=== PATIENT | male | born 1945 | race Caucasian/White ===

== ENCOUNTER 2024-10-14 12:52 | Day surgery (SDC) | payer MEDICARE, OTHER, SELFPAY ==
[2024-10-14] VITALS (12 sets, daily range): BP systolic 101–150; BP diastolic 53–77; BMI 26.5; BMI 25.8
--- NOTE | 2024-10-14 10:37 | ED.GENMED ---
History of Present Illness
General
Chief Complaint: Musculo-Skeletal Complaint
Time Seen by Provider: 10/14/24 10:28
History of Present Illness
History of Present Illness:
78-year-old male presents the emergency department for evaluation of left foot osteomyelitis. Has had a plantar foot ulcer managed by podiatry as an outpatient for several weeks, had an outpatient MRI earlier this week revealing osteomyelitis and
an foot fracture. Was sent in by his applications scientist Dr. Velasco for admission and operative intervention with request to hold antibiotics at this time. Denies fevers. Has been on clindamycin for 4 days but did not take this AM. On Eliquis, did take
AM dose at request of podiatry
MRI results reveal acute osteomyelitis of the fifth metatarsal head and overlying skin ulceration as well as a subacute chronic displaced fracture of the fourth metatarsal head
Review of Systems
Review of Systems
Allergies reviewed?: Yes
All Other Systems: ROS reviewed and negative except as documented in HPI and ROS
Phy Exam
Physical Exam
Physical Exam:
GEN: Well appearing, NAD, WDWN
HEENT: Oral mucosa moist, no scleral icterus
Cardiac: Regular rate
Lung: No respiratory distress, no tachypnea
MSK: No gross deformity or injuries. Partial thickness ulceration to lateral base of plantar 5th metatarsal region, no erythema or swelling, does not probe
Skin: Good color, no pallor or jaundice, no rashes
Neuro: AO x3, moves all extremities freely
Psych: Calm, cooperative
Course
Orders/Labs/Results
Orders:
Orders
10/14/24 Breakfast
NPO
Allow oral meds: Yes
Allow clear liquids: No
10/14/24 10:43
CRP [C-Reactive Protein] Urgent
Complete Blood Count/With Diff Urgent
Comprehensive Metabolic Panel Urgent
10/14/24 11:40
PODIATRY CONSULT Routine
Consulting Provider: Verderame,Claire M.
Was physician already notified: Yes
10/14/24 12:35
Admit/Transfer Patient As Directed
Co-Sign Provider:
Level of Care: Observation services
Assign to:: Telemetry
Physician / Group: fatoumata
Diagnosis: osteomyelitis
Reason for Telemetry: Other
Other Reason for Telemetry: post op
Date to Stop Telemetry: 10/16/24
Time to Stop Telemetry: 11:00
Reason for Hospitalization: osteomyelitis
10/14/24 12:36
PRN Pain Medication Management As Directed
May give lesser potent ordered pain med per pt: Yes
preference::
Protocol:: Medication orders for pain may be administered in a
manner that supports deferring to patient preference
when the pt is:
- Requesting an ordered lesser potent pain medication.
Least to most potent pain medications are defined
as: acetaminophen < NSAID < tramadol < opioids
(morphine, oxycodone, hydromorphone).
- Requesting a lesser dose of the same medication IF
ORDERED.
- Requesting a less intrusive route of administration
if both routes are prescribed by the provider (PO <
IV).
10/14/24 12:38
Code Status As Directed
Resuscitation Status: Full Code
10/14/24 15:14
0.9% Sodium Chloride 1000 ml [Nss] 1,000 ml IV 75 mls/hr
Acetaminophen [Tylenol/Feverall] 650 mg RECTAL Q4HPRN PRN
Acetaminophen [Tylenol] 650 mg PO Q4HPRN PRN
Dextrose 50%-Water [Dextrose 50% Syringe] 12.5 grams IV [id number] PRN
Glucagon [GlucaGen] 1 mg IM PRN PRN
10/14/24 15:14
Admit Patient As Directed
Co-Sign Provider:
Level of Care: Inpatient admission
Assign to:: Telemetry
Physician / Group: fatoumata
Diagnosis: osteomyelitis
Reason for Telemetry: Other
Other Reason for Telemetry: post op
Date to Stop Telemetry: 10/16/24
Time to Stop Telemetry: 11:00
Reason for Hospitalization: osteo
Expected length of stay greater than two midnights?: Yes
ELOS- Estimated Length of Stay in days: 3
I certify the patient meets the requirements for IP care: Yes
Activity As Directed
Activity Level: Out of Bed-Early Mobility
Bedside Glucose Monitoring As Directed
Frequency: AC&HS
Additional Instructions:: Change to q6h if pt on TPN, tube feeding or not eating
Intake/ Output As Directed
Frequency: Per unit guidelines
Venous Foot Pumps As Directed
Location: Bilateral feet
Vital Signs As Directed
Frequency: Per unit guidelines
DX Deep Vein Thrombosis Video Routine
10/14/24 16:30
Insulin Aspart Corrective Low [Novolog Flexpen-Low Resistance] See Protocol SC AC
10/14/24 17:00
METFORMIN HCl [Glucophage] 1,000 mg PO BID AT 0800,1700
10/15/24 06:00
Complete Blood Count/No Diff IN AM
Glycohemoglobin (HgbA1c) IN AM
10/15/24 08:00
Aspirin Low Dose EC [Aspir Low (Enteric Coated)] 81 mg PO DAILY
Ferrous Sulfate [Feosol] 325 mg PO DAILY
Lisinopril [Zestril] 10 mg PO DAILY
Rosuvastatin Calcium [Crestor] 20 mg PO DAILY
10/16/24 06:00
Complete Blood Count/No Diff IN AM
10/16/24 11:00
DC Protocol for Telemetry ONCE
10/17/24 06:00
Complete Blood Count/No Diff IN AM
10/18/24 06:00
Complete Blood Count/No Diff IN AM
Abnormal Lab Results
10/14/24
10:43
RBC 3.87 L 10^6/uL
(4.70-6.10)
Hgb 10.7 L g/dL
(13.0-18.0)
Hct 33.0 L %
(39.0-52.0)
MCHC 32.4 L g/dL
(33.0-37.0)
RDW 14.7 H %
(11.5-14.5)
BUN 26 H mg/dl
(9-20)
Glucose 123 H mg/dl
(70-99)
10/14/24 10:43
10/14/24 10:43
Vital Signs
Initial and Last Documented VS:
Initial Vital Signs
Temp Pulse Resp BP Pulse Ox
97.7 F 90 16 126/77 100
10/14/24 09:42 10/14/24 09:42 10/14/24 09:42 10/14/24 09:42 10/14/24 09:42
Last Documented Vital Signs
Temp Pulse Resp BP Pulse Ox
97.7 F 81 18 150/76 98
10/14/24 15:30 10/14/24 15:30 10/14/24 15:30 10/14/24 15:30 10/14/24 15:30
MDM/Problems Addressed
MDM/Problems Addressed:
Patient will be admitted to the hospitalist service for podiatry intervention in the OR later today, antibiotics are held at this time as the patient is clinically well with no systemic symptoms
*Critical Care Note
Total Time (30-74mins, 75-104mins- exclusive of procedures): Not Applicable
ED Attending Note
-
Portions of this chart may have been created with voice recognition software.� Occasional wrong word or��sound alike� substitutions may have occurred due to the inherent limitations of voice recognition software.
Discharge Plan
Departure
Patient Disposition: Admit
Date of Disposition: 10/14/24
Time of Disposition: 10:42
Admit to: Med/Surg
Presentation/result/management discussed w/ accepting MD/DO: Hospitalist
Discharge Problem:
Acute osteomyelitis of left foot
Interventions
Interventions:
*Risk Screen - Suicide Last Done: 10/14/24 13:00
*General Assessment Last Done: 10/14/24 13:00
*Neglect/Abuse Screening Last Done: 10/14/24 13:00
ED- Fall Risk Assessment Last Done: 10/14/24 12:19
*ED COVID-19 Vaccine History Last Done: 10/14/24 13:00
*Nursing Disposition Last Done: 10/14/24 15:55
ED-Musculoskeletal Assessment Last Done: 10/14/24 10:50
Discharge Date and Time
Discharge Date/Time: 10/14/24 15:56
[2024-10-14 11:15] LABS: % Basophils 0.7 % (0-2); % Eosinophils 3.3 % (0-6); % Immature Granulocytes 0.2 % (0-0.5); % Lymphocytes 29.1 % (20.5-51.1); % Monocytes 8.3 % (1.7-9.3); % Neutrophils 58.4 % (42.2-75.2); ALT (SGPT) 16 U/L (0-50); AST (SGOT) 21 U/L (17-59); Absolute Eosinophils 0.2 10^3/uL (0-0.7); Absolute Lymphocytes 1.7 10^3/uL (1.2-3.4); Absolute Monocytes 0.5 10^3/uL (0.1-0.6); Absolute Neutrophils 3.4 10^3/uL (1.4-6.5); Albumin 4.2 g/dl (3.5-5.0); Alkaline Phosphatase 77 U/L (38-126); Blood Urea Nitrogen 26 mg/dl (9-20); Calcium 9.9 mg/dl (8.4-10.2); Carbon Dioxide 26 mmol/L (22-30); Chloride 102 mmol/L (98-107); Estimated Creatinine Clearance 93 ml/min; Glucose 123 mg/dl (70-99); Hemoglobin 10.7 g/dL (13.0-18.0); Mean Corp Hgb Conc. 32.4 g/dL (33.0-37.0); Mean Corpuscular Hgb 27.6 pg (27.0-31.0); Mean Corpuscular Volume 85.3 fL (80.0-94.0); Nucleated Red Blood Cells % 0 % (-); Platelet Count 245 10^3/uL (130-400); Potassium 4.7 mmol/L (3.5-5.1); Red Blood Cell Count 3.87 10^6/uL (4.70-6.10); Red Cell Dist. Width 14.7 % (11.5-14.5); Sodium 139 mmol/L (135-145); Total Bilirubin 0.2 mg/dl (0.2-1.3); Total Protein 7.1 g/dl (6.3-8.2); White Blood Cell Count 5.8 10^3/uL (4.8-10.8); eGFR > 60.00
[2024-10-14 11:18] LABS: C-Reactive Protein < 5.00 mg/L (0.0-10.00)
--- NOTE | 2024-10-14 12:16 | HPS.HSE ---
Addendum entered and electronically signed by Corrina Bergeron DO 10/14/24 13:05:
The patient is seen and examined, and I have reviewed the patient with WELDING MACHINE OPERATOR/TENDER, Eliana Castro. I agree with her H & P, assessment and plan of care as per below, and with the following additions:
MRI outpatient of left foot was performed 09/04/24
Pt has been on several rounds of oral abx (currently still taking, supposed to finish in 3 days).
Podiatry sent the patient to ED for evaluation of persistent ulcer left dorsal foot despite several rounds oral abx.
Pt has peripheral neuropathy and PAD. Sees Cardiology who started DOAC for PAD. Pt was advised to take Xarelto this am.
VSS/AF
CV RRR, no m/r/g, PT/DP pulses are strong b/l LE
Lungs CTA b/l no w/r/r
Neuro no focal deficits
Ext: left dorsal foot without cellulitis, small ulcerate well-circumscribed without surrounding cellulitis, warm, dry extremities, no edema
Assessment as per below for diagnosis of
# Left fifth metatarsal osteomyelitis
-NPO
-no antibiotics at this time per Podiatry
-gentle IV hydration
-pt took am Xarelto, will hold for now pending recs from Podiatry
-to OR today per Podiatry, plan of care pending intra-operative findings
-SSI, monitor glucose
-tele overnight post-op
-
Original Note:
Family Physician
-
Family Physician: Patrick Espino
Chief Complaint
-
LEFT FOOT WOUND
History of Present Illness
78-year-old male with a past medical history for PAD, iron deficiency anemia, hypertension, type 2 diabetes, hyperlipidemia presented to us with left foot osteomyelitis. Has had a plantar foot ulcer managed by podiatry as an outpatient for several
weeks, had an outpatient MRI earlier this week revealing osteomyelitis and an foot fracture. HE Was sent in by his decorative engraver Dr. Velasco for admission and operative intervention with request to hold antibiotics at this time. Denies fevers,
chills, chest pain, short of breath. has been on clindamycin for 4 days but did not take this AM. Patient denies any headache, dizziness, syncope. Patient denies any abdominal pain, nausea, vomiting, diarrhea. Patient denied dysuria,hematuria.
admitting for further management.
Medical History
Past Medical History
Past Medical History: Reports Other
Additional Past Medical History:
htn
type 2 Dm
PAD
heart murmur
neuropathy
Past Surgical History: Reports Other
Additional Past Surgical History:
right knee cartilage repair
Social History
Tobacco: Non-smoker
Alcohol: None
Drug: None
Family History
Family History: Not pertinent
Allergies / Home Medications
Allergies reflects when Allergies were last updated in [facility].
Home Medications with original date entered in [facility]
Allergy/Medication List:
Allergies
Allergy/AdvReac Type Severity Reaction Status Date / Time
Penicillins Allergy Unknown Verified 10/14/24 09:47
Home Medications
aspirin 81 mg tablet,delayed release 81 mg PO DAILY Blood Clot Prevention/Tx 10/14/24
[id number]-nfxkbusspcirg-xljmwmnr 250 mg-250 mg-65 mg tablet (Excedrin Extra Strength) 2 tab PO DAILYPRN PRN mild pain 10/14/24
cholecalciferol (vitamin D3) 25 mcg (1,000 unit) tablet (Vitamin D3) 25 mcg PO DAILY Supplement 10/14/24
clindamycin HCl 300 mg capsule 300 mg PO TID infection 10/14/24
cyanocobalamin (vitamin B-12) 1,000 mcg tablet 1,000 mcg PO MOWEFR Supplement 10/14/24
ferrous sulfate 325 mg (65 mg iron) tablet 325 mg PO DAILY Supplement 10/14/24
lisinopril 10 mg tablet 10 mg PO DAILY Blood Pressure 10/14/24
metformin 1,000 mg tablet 1,000 mg PO BID Diabetes 10/14/24
rivaroxaban 2.5 mg tablet (Xarelto) 2.5 mg PO BID Blood Clot Prevention/Tx 10/14/24
rosuvastatin 20 mg tablet (Crestor) 20 mg PO DAILY High Cholesterol 10/14/24
vit C 250 mg-vit E 90 mg-zinc 40 mg-copper 1 [id number]-mdiufl-azovwc capsule (PreserVision AREDS-2) 1 tab PO BID Supplement 10/14/24
Review of Systems
-
Constitutional: Reports No Symptoms
EENT: Reports No Symptoms
Respiratory: Reports No Symptoms
Cardiac: Reports No Symptoms
Abdomen/GI: Reports No Symptoms
: Reports No Symptoms
Musculoskeletal: Reports No Symptoms
Skin: Reports Other (left plantar wound)
Neurological: Reports No Symptoms
Endocrine: Reports No Symptoms
Hematologic/Lymphatic: Reports No Symptoms
Psych: Reports No Symptoms
Physical Exam
Vital Signs
Vital Signs
Temp Pulse Resp BP Pulse Ox
97.7 F 90 16 126/77 100
10/14/24 09:42 10/14/24 09:42 10/14/24 09:42 10/14/24 09:42 10/14/24 09:42
Physical Exam
General: Well Developed, Well Nourished and No Apparent Distress
HEENT: NormoCephalic, Moist mucous membranes and Atraumatic
Respiratory: Clear
Cardiac: S1/S2 and Regular Rhythm; No Murmur or Rub
GI: Soft, Non Tender, Non Distended and Normal Bowel Sounds; No Organomegaly
Rectal: Deferred by Provider
Musculoskeletal: No Clubbing, No Cyanosis and No Edema
Skin: Other (left plantar wound)
Neuro: AO x 3 and Nonfocal/grossly intact
Psych: Calm
Laboratory Results
-
10/14/24 10:43
10/14/24 10:43
Laboratory Results
Total Bilirubin 0.2 mg/dl (0.2-1.3) 10/14/24 10:43
AST 21 U/L (17-59) 10/14/24 10:43
ALT 16 U/L (0-50) 10/14/24 10:43
Alkaline Phosphatase 77 U/L (38-126) 10/14/24 10:43
Data Reviewed
-
Diagnostic Radiology: Report Reviewed by me
Lab Data: Labs Reviewed by me
Impression/Plan
-
# Left fifth metatarsal osteomyelitis
-Plans to take OR later
-Keep patient n.p.o.
-Podiatry following patient
-MRI with impression of findings compatible with early acute osteomyelitis of the fifth metatarsal head and overlying skin ulceration. Subacute/chronic displaced fracture of the fourth metatarsal head.
# Iron deficiency anemia
-Hemoglobin stable at 10.7
-No active bleeding
- continue to monitor
-Ferrous sulfate continued
# History of PAD
-Holding Xarelto
# Essential hypertension
-Lisinopril continued with hold parameters
# Type 2 diabetes
Metformin continued
-Sliding scale
# Hyperlipidemia
-Statin continued
# DVT prophylaxis
-SCD
# CODE STATUS
-full code
--- NOTE | 2024-10-14 15:44 | PTCARENOTE ---
received patient into room 406 from ed. Phone call from OR that they are ready for him to be sent to OR. per OR he had received report from ER. vitals obtained and physical assessment completed. pre op check list completed and patient
transported to OR in bed.
--- NOTE | 2024-10-14 16:05 | CON.MD ---
Consultation - Medical
-
Patient sent to the ED for left foot chronic ulcer with drainage. Plantar left foot ulcer present for several months treated by wound care at [facility]. At that time, ulcer was under the 4th metatarsal head and later found head fractured
causing dorsal dislocation of the 4th toe. Plantar ulcer then transferred laterally under the 5th metatarsal with draining and open to deep tissue. Failed outpatient treatment including oral antibiotic therapy, wound care and immobilization.
Patient previously refused admission or MRI. Had open MRI at [facility] indicating acute osteomyelitis at the 5th metatarsal head and fracture of the 4th metatarsal head, dislocation of the 4th toe dorsally with disruption of the plantar
plate. After swelling and drainage increase in the foot, he agreed to admission and surgical intervention.
On exam pedal pulses palpable bilaterally with left LE swelling localized to the foot and ankle. No ascending cellulitis at this time.
left plantar ulcer 1 cm probing to deep tissue with no tunneling to adjacent compartments. 4th toe left dislocated dorsally. Patient has diminished response to painful stimuli due to neuropathy.
Impression/Plan
- Left plantar foot ulcer
xrays show chronic fracture of 4th met head and MRI indicates 5th metatarsal head osteomyelitis.
to OR today for 4,5 metatarsal head and base of 5th proximal phalanx resection
-Diabetes Mellitus with peripheral neuropathy
-PAD on Xarelto
[2024-10-14 16:08] LABS: Glucose - Point of Care 95 mg/dl (70-99)
--- NOTE | 2024-10-14 17:31 | W.PN.UPDATE ---
Update Note
Progress Note Update
Patient to OR for removal of fractured 4th metatarsal head as well as osteomyelitis of 5th metatarsal head and base of proximal phalanx. Patient tolerated procedure and anesthesia without complication and return to recovery room with vital signs
stable and neurovascular status in tact. Specimen sent to pathology. Surgical cure expected. Can be weight bearing with surgical shoe. Reinforce dressing only. Resume Xarelto. Begin oral Clindamycin and plan for discharge tomorrow afternoon
after post op dressing change by me in the AM.
[2024-10-14 17:45] LABS: Glucose - Point of Care 106 mg/dl (70-99)
[2024-10-14] MEDS: NSS 1000 IV (17:58)
--- NOTE | 2024-10-14 18:35 | PTCARENOTE ---
received from PACU in bed, awake, denies any pain, dressing to left foot dry and intact. elevated on 2 pillows. vitals noted. call bourgeois in reach. and son at bedside. plan of care on going.
[2024-10-14] MEDS: GLUCOPHAGE 1000 MG PO (18:39)
[2024-10-14 21:19] LABS: Glucose - Point of Care 195 mg/dl (70-99)
[2024-10-14] MEDS: TYLENOL 650 MG PO (21:40)
[2024-10-15 03:55] VITALS: BP 120/65
--- NOTE | 2024-10-15 07:00 | W.PN.HOSP.TC ---
Today's Communication/Plan
-
discharge
Assessment / Plan
Assessment / Plan
Physical Exam
General: Well Developed, Well Nourished and No Apparent Distress
HEENT: NormoCephalic, Moist mucous membranes and Atraumatic
Respiratory: Clear
Cardiac: S1/S2 and Regular Rhythm; No Murmur or Rub
GI: Soft, Non Tender, Non Distended and Normal Bowel Sounds; No Organomegaly
Musculoskeletal: No Clubbing, No Cyanosis and No Edema, left foot bandaging surgical shoe in place clean dry intact
Neuro: AO x 3 and Nonfocal/grossly intact
Psych: Calm
78-year-old male with a past medical history for PAD, iron deficiency anemia, hypertension, type 2 diabetes, hyperlipidemia presented to us with left foot osteomyelitis. Has had a plantar foot ulcer managed by podiatry as an outpatient for several
weeks, had an outpatient MRI earlier this week revealing osteomyelitis and an foot fracture. HE Was sent in by his cutter and paster press clippings Dr. Velasco for admission and operative intervention with request to hold antibiotics at this time. Denies fevers,
chills, chest pain, short of breath. has been on clindamycin for 4 days but did not take this AM. Patient denies any headache, dizziness, syncope. Patient denies any abdominal pain, nausea, vomiting, diarrhea. Patient denied dysuria,hematuria.
Admitted for further management.
# Left fifth metatarsal osteomyelitis and fracture Lt 4th metatarsal
-MRI with impression of findings compatible with early acute osteomyelitis of the fifth metatarsal head and overlying skin ulceration. Subacute/chronic displaced fracture of the fourth metatarsal head.
Podiatry eval appreciated
-One day status post removal of 4th and 5th metatarsal heads and base of proximal phalanx 5th toe. Surgical cure achieved
-Dressing changed and site stable. outpt podiatry follow up Sunday. No wound care needed
-Patient will resume oral antibiotic given as outpatient and may ambulate in surgical shoe.
# Iron deficiency anemia
-H&H stable
-No active bleeding
-Ferrous sulfate continued
# History of PAD
-Xarelto resumed as per Podiatry
# Essential hypertension
-Lisinopril continued with hold parameters
# Type 2 diabetes
Metformin continued
-Sliding scale
# Hyperlipidemia
-Statin continued
# DVT prophylaxis
-SCD
# CODE STATUS
-full code
Medically stable for discharge home with outpatient follow up recommendations.
Total Time Preparing Discharge ____40___ minutes including examination of the patient, summary of the hospital stay, instructions for continuing care to all relevant caregivers; and preparation of discharge records, prescriptions, and referral
forms if necessary.
Anticipated Discharge: Today
Subjective/Interval History
-
Date of Service: October 15, 2024
Seen and examined at bedside in no acute distress sitting up comfortably in bed. Reports overall feeling well following procedure. Denies new acute issues. Eager to go home.
Objective Data
-
Labs:
Laboratory Results
10/15/24
06:00
WBC Pending
Hgb Pending
Hct Pending
Plt Count Pending
Vital Signs:
Vital Signs
Temp Pulse Resp BP Pulse Ox
97.9 F 77 20 120/65 95
10/15/24 03:55 10/15/24 03:55 10/15/24 03:55 10/15/24 03:55 10/15/24 03:55
[2024-10-15 07:19] LABS: Glucose - Point of Care 130 mg/dl (70-99)
[2024-10-15] MEDS: NSS 1000 IV (07:21)
[2024-10-15 07:25] VITALS: BP 142/65
[2024-10-15 08:20] LABS: Hematocrit 33.8 % (39.0-52.0); Hemoglobin 10.8 g/dL (13.0-18.0); Mean Corpuscular Hgb 26.7 pg (27.0-31.0); Mean Corpuscular Volume 83.7 fL (80.0-94.0); Mean Platelet Volume 9.1 fL (7.4-10.4); Platelet Count 269 10^3/uL (130-400); Red Blood Cell Count 4.04 10^6/uL (4.70-6.10); Red Cell Dist. Width 14.5 % (11.5-14.5); White Blood Cell Count 8.6 10^3/uL (4.8-10.8)
[2024-10-15] MEDS: FEOSOL 325 MG PO (08:31)
[2024-10-15] MEDS: GLUCOPHAGE 1000 MG PO (08:31)
[2024-10-15] MEDS: XARELTO 2.5 MG PO (08:31)
[2024-10-15] MEDS: ASPIR LOW (ENTERIC COATED) 81 MG PO (08:31)
[2024-10-15] MEDS: ZESTRIL 10 MG PO (08:31)
[2024-10-15] MEDS: VITAMIN D3 (cholecalciferol) 25 MCG PO (08:31)
[2024-10-15] MEDS: CLEOCIN 300 MG PO (08:31)
[2024-10-15] MEDS: CRESTOR 20 MG PO (08:31)
[2024-10-15] MEDS: VITAMIN B-12 1000 MCG PO (08:36)
--- NOTE | 2024-10-15 09:00 | W.PN.POD ---
Today's Communication
Today's Communication
OK for discharge
Assessment / Plan
-
Osteomyelitis left 5th metatarsal and fracture left 4th metatarsal
-One day status post removal of 4th and 5th metatarsal heads and base of proximal phalanx 5th toe. Surgical cure achieved
-Dressing changed and site stable. Will keep clean, dry and in tact and follow up in my office Sunday. No wound care needed
-Patient will resume oral antibiotic given as outpatient and may ambulate in surgical shoe.
-May be discharged from surgical standpoint
Diabetes mellitus with peripheral neuropathy
PAD
Hypertension
Subjective
Chief Complaint
Admitted with left foot osteomyelitis and diabetic plantar ulcer
Subjective
Resting comfortably in bed with no complaints. present.
Objective
Temp Pulse Resp BP Pulse Ox
97.8 F 74 20 142/65 98
10/15/24 07:25 10/15/24 08:31 10/15/24 07:25 10/15/24 08:31 10/15/24 07:25
10/15/24 07:51
10/14/24 10:43
Vital Signs and Lab results were reviewed.
Review of Systems
Review of Systems
Review of Systems: No Fever and No Chills
Physical Exam
Physical Exam
Dressing clean, dry and in tact. Removed to reveal incisions with no dehiscense and no drainage. Sutures in tact. No edema or erythema. Plantar ulcer stable with no drainage and granular base
[2024-10-15 09:43] LABS: Glycohemoglobin (HgbA1c) 6.5 % (4.0-5.6)
--- NOTE | 2024-10-15 10:11 | W.DCSUMMARY ---
Discharge Summary
Discharge Data
Date of Admission: 10/14/24
Date of Discharge: 10/15/24
-
Pending Results: Yes
Additional Pending Results:
HgbA1c
Hospital Course
78-year-old male with a past medical history for PAD, iron deficiency anemia, hypertension, type 2 diabetes, hyperlipidemia presented with left foot osteomyelitis. Has had plantar foot ulcer managed by podiatry as an outpatient for several weeks,
had an outpatient MRI earlier this week revealing osteomyelitis and an foot fracture. He was sent in by his plant operations worker Dr. Velasco for admission and operative intervention with request to hold antibiotics at this time. Denied fevers, chills, chest
pain, shortness of breath. has been on clindamycin for 4 days as outpatient prior to admission. Patient denied any headache, dizziness, syncope, any abdominal pain, nausea, vomiting, diarrhea, dysuria, or hematuria. MRI noted findings compatible
with early acute osteomyelitis of the fifth metatarsal head and overlying skin ulceration and subacute/chronic displaced fracture of the fourth metatarsal head.
Podiatry evaluated and performed removal of 4th and 5th metatarsal heads and base of proximal phalanx 5th toe. Surgical cure achieved. Post op day 1, dressing was changed by podiatry who noted site stable and recommended outpatient follow up
Sunday. Patient to resume oral antibiotic given as outpatient and cleared to ambulate in surgical shoe. Iron deficiency anemia, H&H stable, no active bleeding, home Ferrous sulfate continued. History of PAD, Xarelto resumed as per Podiatry.
Medically stable, patient was discharged home with outpatient follow up recommendations.
Discharge Plan
-
Patient Disposition: Home (Routine Discharge)
Discharge Diagnosis/Procedures: Left fifth metatarsal osteomyelitis, Base proximal phalanx 5th toe, and Fracture Left 4th metatarsal status post removal, surgical cure
Condition: Fair
Diet: Diabetic, Carb Controlled
Activity: As tolerated
Driving Restrictions: As prior to admission
Activity Restrictions/Additional Instructions:
Follow up with primary care provider in 1 week of discharge and Podiatry Sunday10/20/24
Referrals:
Patrick Espino DO [Family Provider] - in one week
Claire Velasco DPM [Specified Professional Personl] - 10/20/24
Prescriptions:
Continued
clindamycin HCl 300 mg Capsule
300 mg PO TID
cyanocobalamin (vitamin B-12) 1,000 mcg Tablet
1,000 mcg PO MOWEFR
aspirin 81 mg Tablet,Delayed Release (Dr/Ec)
81 mg PO DAILY
ferrous sulfate 325 mg (65 mg iron) Tablet
325 mg PO DAILY
metformin 1,000 mg Tablet
1,000 mg PO BID
lisinopril 10 mg Tablet
10 mg PO DAILY
Excedrin Extra Strength 250-250-65 mg Tablet
2 tab PO DAILYPRN PRN (Reason: mild pain)
rosuvastatin [Crestor] 20 mg Tablet
20 mg PO DAILY
cholecalciferol (vitamin D3) [Vitamin D3] 25 mcg (1,000 unit) Tablet
25 mcg PO DAILY
PreserVision AREDS-2 250-90-40-1 mg Capsule
1 tab PO BID
Xarelto 2.5 mg Tablet
2.5 mg PO BID
Discharge Orders:
Discharge Patient (As Directed); Ordered 10/15/24
Ordered By: Ayden Jade
Discharge Date and Time
Discharge Date/Time: 10/15/24 11:00
Print Language: ALBANIAN
--- NOTE | 2024-10-15 10:56 | CM ---
Fermin came to the unit late yesterday and is ready for discharge today.
CM met with Fermin and his at bedside. Fermin was already dressed, eating his breakfast standing up. They were anxious to go home, so IA not completed, however IMM reviewed and signed, copy provided. Fermin had no questions or concerns.
Plan: Discharge to home with no needs.
PCP: Patrick Espino
Pharmacy: [facility] in [place]
[2024-10-16 20:04] LABS: Hepatitis C Antibody Negative (Negative)
== END 2024-10-15 11:00 | disposition home or self-care (01) ==
LOC: PACU 12:52
PROVIDERS: Internal Medicine; Physician Assistant; Registered Nurse; ATTENDING PHYSICIAN Internal Medicine; CONSULT PHYSICIAN Podiatrist Foot & Ankle Surgery; EMERGENCY PHYSICIAN Student in an Organized Health Care Education/Training Program; FAMILY PHYSICIAN Family Medicine
DX: M86.172 Other acute osteomyelitis, left ankle and foot (principal); E11.621 Type 2 diabetes mellitus with foot ulcer; M19.072 Primary osteoarthritis, left ankle and foot
CPT/HCPCS: 28304; 88304; 88311; 73620; 80053; 82962; 83036; 85025; 85027; 86140; 86803; 99285